=== PATIENT | male | born 1980 | race Caucasian/White ===

== ENCOUNTER 2022-07-11 10:01 | Outpatient (CLI) | payer OTHER, SELFPAY ==
--- NOTE | ~2022-07-11 | MR_ITS ---
MRI of the lumbar spine Clinical History: Radiculopathy Technique: Axial T2-weighted images, and sagittal T1-weighted, T2-weighted, and T2 fat-sat images wer e acquired. Findings: There is no fracture or subluxation lumbar spine. Vertebral bodies maintain normal height a nd alignment. No bone marrow signal abnormality seen. At L1-L2, there is facet arthropathy. No disc bulge or herniation. No spinal canal stenosis or neural foraminal narrowing. At L2-L3, there is facet arthropathy. No significant disc bulge or herniation. No spinal canal stenos is. There is mild left neural foraminal narrowing. Right neural foramen preserved. At L3-L4, there is minimal disc bulge, with mild facet arthropathy. No spinal canal stenosis. There i s moderate bilateral neural foraminal narrowing. At L4-L5, there is minimal disc bulge and mild facet arthropathy. No spinal canal stenosis. There is moderate to advanced left neural foraminal narrowing and moderate right neural foraminal narrowing. At L5-S1, there is no disc bulge or herniation. No spinal canal stenosis or neural foraminal narrowin g. Paravertebral soft tissues are unremarkable. Impression: Mild degenerative spondylosis, as detailed above. There is multilevel mild to moderate neural foramin al narrowing. Reviewed, dictated and finalized at location [facility] Impression: Mild degenerative spondylosis, as detailed above. There is multilevel mild to m oderate neural foraminal narrowing.
== END 2022-07-11 10:02 ==
PROVIDERS: PCP Internal Medicine; Visit Provider Anesthesiology
DX: M47.26 Other spondylosis with radiculopathy, lumbar region (principal)
CPT/HCPCS: 72148